=== PATIENT | male | born 1955 | race Caucasian/White ===

== ENCOUNTER → 2016-07-08 | Outpatient (CLI) | payer MEDICARE ==
[~2016-07-08] VITALS: Ht 180.3 cm; Wt 113.4 kg
[~2016-07-08] MED LIST: LIDOCAINE 2% INJ 100 MG/5 ML SDV (FOR ANES.) As Ordered ONE; LISI10TA4 PO; NS 1,000 ML IV SCH; OMEP40CA2 PO; PROPOFOL 500 MG/50 ML VIAL As Ordered ONE; SIMV10TA2 PO
--- NOTE | 2016-07-08 12:36 | ROOR ---
Patient Name: Jordan Dhaliwal Procedure Date: 07/08/2016 12:10 PM Date of : 1955 Age: 61 Room: M OP Gender: Male Note Status: Finalized Procedure: Upper GI endoscopy Indications: Dysphagia, Suspected esophageal reflux Providers: Cam GALVIN MD Referring MD: VIANCA BOOTH MD Requesting Provider: Medicines: Monitored Anesthesia Care Complications: No immediate complications. Procedure: Pre-Anesthesia Assessment: - The heart rate, respiratory rate, oxygen saturations, blood pressure, adequacy of pulmonary ventilation, and response to care were monitored throughout the procedure. The Endoscope was introduced through the mouth, and advanced to the second part of duodenum. The upper GI endoscopy was accomplished without difficulty. The patient tolerated the procedure well. Findings: No endoscopic abnormality was evident in the esophagus to explain the patient's complaint of dysphagia. It was decided, however, to proceed with dilation of the entire esophagus. The scope was withdrawn. Dilation was performed with a Eubanks dilator with no resistance at 54 Fr. The dilation site was examined and showed no change. The entire examined stomach was normal. A small hiatus hernia was present. The examined duodenum was normal. Impression: - No endoscopic esophageal abnormality to explain patient's dysphagia. Esophagus dilated. Dilated. - Normal stomach (large volume). - Very small (insignificant) hiatus hernia. - Normal examined duodenum. - No specimens collected. Recommendation: - Use Protonix (pantoprazole) 40 mg PO daily. - (the script was sent to your pharmacy on file) Cam Galvin MD Cam GALVIN MD 07/08/2016 12:36:00 PM This report has been signed electronically. Number of Addenda: 0 Note Initiated On: 07/08/2016 12:10 PM Estimated Blood Loss: Estimated blood loss: none.
[2016-07-08 12:51] VITALS: BP 141/85
--- NOTE | 2016-07-08 12:51 | ROOR ---
Patient Name: Jordan Dhaliwal Procedure Date: 07/08/2016 12:11 PM Date of : 1955 Age: 61 Room: [facility] Gender: Male Note Status: Finalized Procedure: Colonoscopy Indications: Change in bowel habits, Diarrhea Providers: Cam ATWOOD MD Referring MD: VIANCA BOOTH MD Requesting Provider: Medicines: Monitored Anesthesia Care Complications: No immediate complications. Procedure: Pre-Anesthesia Assessment: - The heart rate, respiratory rate, oxygen saturations, blood pressure, adequacy of pulmonary ventilation, and response to care were monitored throughout the procedure. The Colonoscope was introduced through the anus and advanced to the cecum, identified by appendiceal orifice and ileocecal valve. The colonoscopy was performed with difficulty due to inadequate bowel prep. Successful completion of the procedure was aided by lavage. The patient tolerated the procedure well. The quality of the bowel preparation was poor. Findings: The perianal and digital rectal examinations were normal. (Colon Prep was POOR, Inadequate Visualisation) Four flat polyps were found in the ascending colon and in the cecum. The polyps were 3 to 5 mm in size. These polyps were removed with a cold snare. Resection and retrieval were complete. Multiple medium-mouthed diverticula were found in the entire colon. Internal hemorrhoids were found during retroflexion. The hemorrhoids were medium-sized. The colon is grossly normal without large tumors or obstructing lesions. Unable to perform adequate detail examination. Small lesions may have been missed. Impression: - Preparation of the colon was poor. - The colon is grossly normal without large tumors or obstructing lesions. Unable to perform adequate detail examination. - Four 3 to 5 mm polyps in the ascending colon and in the cecum, removed with a cold snare. Resected and retrieved. - Moderate diverticulosis in the entire examined colon. - Internal hemorrhoids. Recommendation: - Repeat colonoscopy in 1 year because the bowel preparation was poor. Cam Atwood MD Cam ATWOOD MD 07/08/2016 12:50:59 PM This report has been signed electronically. Number of Addenda: 0 Note Initiated On: 07/08/2016 12:11 PM Estimated Blood Loss: Estimated blood loss: none.
== END ==
LOC: M OPP 09:07
PROVIDERS: ATTEND Internal Medicine Gastroenterology
DX: R19.4 Change in bowel habit (principal); R19.7 Diarrhea, unspecified; D12.2 Benign neoplasm of ascending colon; D12.0 Benign neoplasm of cecum; K57.30 Diverticulosis of large intestine without perforation or abscess without bleeding; K64.8 Other hemorrhoids; R13.10 Dysphagia, unspecified; K44.9 Diaphragmatic hernia without obstruction or gangrene; I10 Essential (primary) hypertension; E78.00 Pure hypercholesterolemia, unspecified; Z90.49 Acquired absence of other specified parts of digestive tract; Z79.899 Other long term (current) drug therapy; Z88.5 Allergy status to narcotic agent

== ENCOUNTER → 2017-02-09 | Outpatient (CLI) | payer MEDICARE ==
[~2017-02-09] MED LIST changes: -LIDOCAINE 2% INJ 100 MG/5 ML SDV (FOR ANES.) As Ordered ONE; -NS 1,000 ML IV SCH; -PROPOFOL 500 MG/50 ML VIAL As Ordered ONE
[2017-02-09 14:40] LABS: ANION GAP 6 MEQ/L (8-16); BLOOD UREA NITROGEN 14 MG/DL (7-18); CALCIUM LEVEL 9.2 MG/DL (8.8-10.2); CARBON DIOXIDE LEVEL 30 MEQ/L (21-32); CHLORIDE LEVEL 104 MEQ/L (98-107); CREATININE FOR GFR 0.88 MG/DL (0.70-1.30); GLOMERULAR FILTRATION RATE > 60.0 (>49); GLUCOSE, FASTING 85 MG/DL (80-110); POTASSIUM SERUM 4.4 MEQ/L (3.5-5.1); SODIUM LEVEL 140 MEQ/L (136-145)
== END ==
LOC: M SMT 11:32
PROVIDERS: ATTEND Nurse Practitioner Women's Health
DX: R31.29 Other microscopic hematuria (principal)
CPT/HCPCS: 36415; 80048; 81001; 87086; 88108; G0463

== ENCOUNTER → 2017-02-23 | Outpatient (CLI) | payer MEDICARE ==
[~2017-02-23] MED LIST changes: +ISOVUE-370 76% 100ML VIAL (Q9967) As Ordered ONE
--- NOTE | 2017-02-23 17:45 | REP ---
CT urogram with IV but without oral contrast: History: Microscopic hematuria. Comparison study 11/07/[address] [facility] contrast dose: 100 mL of Isovue [address] findings: Preliminary digital commercial art instructor radiograph is unremarkable. The lung bases are clear. The liver and the spleen are normal in size homogeneous in texture on pre and postcontrast images. No adrenal lesion is seen. There are clips in the gallbladder fossa post cholecystectomy. No pancreatic abnormality is observed. No retroperitoneal mass or adenopathy is seen. Normal caliber aorta is seen. Pre contrast study shows no evidence of intrarenal calculus. No hydronephrosis is seen. The kidneys enhance symmetrically and are morphologically intact on postcontrast images. No filling defect is seen in the collecting system on either side. Ureters describe a normal course to the bladder. No filling defect seen in the bladder. Prostate is somewhat enlarged. It contains dystrophic calcifications. Seminal vesicles are unremarkable. There is rich colonic diverticulosis without CT evidence of diverticulitis. Small and large bowel loops are otherwise unremarkable. No bladder abnormality is seen. No bony destructive lesion seen. Impression: 1. Postcholecystectomy. 2. Rich colonic diverticulosis. 3. Some dystrophic changes are seen in the in the mildly enlarged prostate. 4. Otherwise unremarkable CT abdomen pelvis with IV contrast, CT urogram. Signed by Rob Silva MD 02/24/2017 09:53 A
== END ==
LOC: M RAD 15:42
PROVIDERS: ATTEND Nurse Practitioner Women's Health
DX: K57.90 Diverticulosis of intestine, part unspecified, without perforation or abscess without bleeding (principal); N42.89 Other specified disorders of prostate
CPT/HCPCS: 74178; Q9967

== ENCOUNTER → 2017-08-14 | Day surgery (SDC) | payer MEDICARE ==
[~2017-08-14] MED LIST changes: -ISOVUE-370 76% 100ML VIAL (Q9967) As Ordered ONE; +LIDOCAINE 2% INJ 100 MG/5 ML SDV (FOR ANES.) As Ordered; -LISI10TA4 PO; +NS 1,000 ML IV; -OMEP40CA2 PO; +PROPOFOL 500 MG/50 ML VIAL As Ordered; -SIMV10TA2 PO
== END | disposition home or self-care (01) ==
LOC: M OPP 08:18
DX: Z09 Encounter for follow-up examination after completed treatment for conditions other than malignant neoplasm (principal); Z86.010 Personal history of colon polyps; D49.0 Neoplasm of unspecified behavior of digestive system; D12.2 Benign neoplasm of ascending colon; D12.0 Benign neoplasm of cecum; K57.30 Diverticulosis of large intestine without perforation or abscess without bleeding; R12 Heartburn; R19.8 Other specified symptoms and signs involving the digestive system and abdomen; K22.8 Other specified diseases of esophagus; I10 Essential (primary) hypertension; E78.5 Hyperlipidemia, unspecified; M19.90 Unspecified osteoarthritis, unspecified site; R06.02 Shortness of breath; K44.9 Diaphragmatic hernia without obstruction or gangrene; Z87.891 Personal history of nicotine dependence; Z88.8 Allergy status to other drugs, medicaments and biological substances; Z79.899 Other long term (current) drug therapy; Z80.8 Family history of malignant neoplasm of other organs or systems
CPT/HCPCS: 45385

== ENCOUNTER 2018-11-18 07:08 | Day surgery (SDC) | payer MEDICARE ==
[~2018-11-18] VITALS: Ht 180.3 cm; Wt 120.2 kg
[~2018-11-18 07:08] MED LIST changes: -LIDOCAINE 2% INJ 100 MG/5 ML SDV (FOR ANES.) As Ordered; +LISI10TA4 PO; -NS 1,000 ML IV; +OMEP40CA2 PO; -PROPOFOL 500 MG/50 ML VIAL As Ordered; +SIMV10TA2 PO
[2018-11-18] MEDS ORDERED: NS 1,000 ML IV ONE (09:15)
[2018-11-18] MEDS ORDERED: PROPOFOL 500 MG/50 ML VIAL As Ordered ONE (09:18)
[2018-11-18] MEDS ORDERED: LIDOCAINE 2% INJ 100 MG/5 ML SDV (FOR ANES.) As Ordered ONE (09:18)
--- NOTE | 2018-11-18 09:37 | ROOR ---
Patient Name: Jordan Dhaliwal Procedure Date: 11/18/2018 9:11 AM Date of : 1955 Age: 63 Room: [facility] Gender: Male Note Status: Finalized Procedure: Colonoscopy Indications: High risk colon cancer surveillance: Personal history of colonic polyps Providers: Cam ATWOOD MD Referring MD: VIANCA BOOTH MD Requesting Provider: Medicines: Monitored Anesthesia Care Complications: No immediate complications. Procedure: Pre-Anesthesia Assessment: - The heart rate, respiratory rate, oxygen saturations, blood pressure, adequacy of pulmonary ventilation, and response to care were monitored throughout the procedure. The Colonoscope was introduced through the anus and advanced to the cecum, identified by appendiceal orifice and ileocecal valve. The colonoscopy was somewhat difficult due to inadequate bowel prep. Successful completion of the procedure was aided by lavage. The patient tolerated the procedure well. The quality of the bowel preparation was fair. Findings: The perianal and digital rectal examinations were normal. (EXAM: Complete, PREP: Suboptimal) Three sessile polyps were found in the sigmoid colon. The polyps were 4 to 6 mm in size. These polyps were removed with a cold snare. Resection and retrieval were complete. Multiple small and large-mouthed diverticula were found in the left colon. Multiple medium-mouthed diverticula were found in the right colon. Internal hemorrhoids were found during retroflexion. The hemorrhoids were moderate. Impression: - (EXAM: Complete, PREP: Suboptimal) - Three 4 to 6 mm polyps in the sigmoid colon, removed with a cold snare. Resected and retrieved. - Moderate diverticulosis in the left colon. - Mild diverticulosis in the right colon. - Internal hemorrhoids. Recommendation: - Repeat colonoscopy in 2 years because the bowel preparation was suboptimal. - Repeat colonoscopy in 2 years for adenoma surveillance. - (s/p 3 poorly prepped colonoscopies. would Rec alternate/more aggressive colon preparation for next colonoscopy) Cam Atwood MD Cam ATWOOD MD 11/18/2018 9:37:21 AM Electronically signed by Cam ATWOOD MD Number of Addenda: 0 Note Initiated On: 11/18/2018 9:11 AM Estimated Blood Loss: Estimated blood loss: none.
[2018-11-18 09:55] VITALS: BP 125/88
== END 2018-11-18 10:08 | disposition home or self-care (01) ==
LOC: M OPP 07:08
PROVIDERS: ATTEND Internal Medicine Gastroenterology
DX: K64.8 Other hemorrhoids (principal); D12.5 Benign neoplasm of sigmoid colon; Z86.010 Personal history of colon polyps; Z79.899 Other long term (current) drug therapy; Z88.8 Allergy status to other drugs, medicaments and biological substances

== ENCOUNTER → 2020-08-30 | Outpatient (CLI) | payer MEDICARE ==
[~2020-08-30] MED LIST changes: +ATOR40TA75 PO; +LISI10TA22 PO; -LISI10TA4 PO; +LOSA50TA88 PO; -OMEP40CA2 PO; +OMEP40CA97 PO; +SERT50TA29 PO; -SIMV10TA2 PO; +SIMV10TA21 PO
== END ==
LOC: M LABSMTC 09:44
PROVIDERS: ATTEND Anesthesiology
DX: Z01.812 Encounter for preprocedural laboratory examination (principal); Z20.822 Contact with and (suspected) exposure to COVID-19

== ENCOUNTER 2020-09-04 11:04 | Day surgery (SDC) | payer MEDICARE ==
[~2020-09-04] VITALS: Ht 177.8 cm; Wt 115.2 kg
[~2020-09-04 11:04] MED LIST changes: +NS 1,000 ML IV ONE
[2020-09-04] MEDS ORDERED: propofoL 200 MG/20 ML VIAL As Ordered ONE ×2 (12:18→12:34)
[2020-09-04] MEDS ORDERED: LIDOCAINE 2% 100MG/5ML SDV (FOR ANES.) As Ordered ONE (12:18)
--- NOTE | 2020-09-04 12:28 | ROOR ---
Patient Name: Jordan Dhaliwal Procedure Date: 09/04/2020 12:12 PM Date of : 1955 Age: 65 Room: [facility] Gender: Male Note Status: Finalized Procedure: Upper GI endoscopy Indications: Follow-up of Moreira's esophagus Providers: Cam GALVIN MD Referring MD: VIANCA BOOTH MD Requesting Provider: Medicines: Monitored Anesthesia Care Complications: No immediate complications. Procedure: Pre-Anesthesia Assessment: - The heart rate, respiratory rate, oxygen saturations, blood pressure, adequacy of pulmonary ventilation, and response to care were monitored throughout the procedure. The Endoscope was introduced through the mouth, and advanced to the second part of duodenum. The upper GI endoscopy was accomplished without difficulty. The patient tolerated the procedure well. Findings: The Z-line was variable and was found 40 cm from the incisors. This was biopsied with a cold forceps for evaluation to rule out Moreira's Esophagus. The examined esophagus was otherwise normal. The entire examined stomach was normal. The examined duodenum was normal. Impression: - Z-line variable, 40 cm from the incisors. Biopsied. - Otherwise normal esophagus. - Normal stomach. - Normal examined duodenum. Recommendation: - Continue present medications. - Follow an antireflux regimen. - Repeat upper endoscopy in 3 years for surveillance. Procedure Code(s): --- Professional --- 54737, Esophagogastroduodenoscopy, flexible, transoral; with biopsy, single or multiple Diagnosis Code(s): --- Professional --- K22.70, Moreira's esophagus without dysplasia K22.8, Other specified diseases of esophagus CPT copyright 2019 [employer]. All rights reserved. The codes documented in this report are preliminary and upon ornithology teacher review may be revised to meet current compliance requirements. Cam Galvin MD Cam GALVIN MD 09/04/2020 12:28:03 PM Electronically signed by Cam GALVIN MD Number of Addenda: 0 Note Initiated On: 09/04/2020 12:12 PM Estimated Blood Loss: Estimated blood loss: none.
--- NOTE | 2020-09-04 12:48 | ROOR ---
Patient Name: Jordan Dhaliwal Procedure Date: 09/04/2020 12:13 PM Date of : 1955 Age: 65 Room: [facility] Gender: Male Note Status: Finalized Procedure: Colonoscopy Indications: High risk colon cancer surveillance: Personal history of colonic polyps, Last colonoscopy: November 2018, Incidental - Positive Cologuard test Providers: Cam ATWOOD MD Referring MD: VIANCA BOOTH MD Requesting Provider: Medicines: Monitored Anesthesia Care Complications: No immediate complications. Procedure: Pre-Anesthesia Assessment: - The heart rate, respiratory rate, oxygen saturations, blood pressure, adequacy of pulmonary ventilation, and response to care were monitored throughout the procedure. The Colonoscope was introduced through the anus and advanced to the terminal ileum, with identification of the appendiceal orifice and IC valve. The colonoscopy was performed without difficulty. The patient tolerated the procedure well. The quality of the bowel preparation was fair. Findings: EXAM: Complete, PREP: Fair The perianal and digital rectal examinations were normal. A diminutive polyp was found in the cecum. The polyp was sessile. The polyp was removed with a cold snare. Resection and retrieval were complete. Multiple small and large-mouthed diverticula were found in the left colon and right colon. Internal hemorrhoids were found during retroflexion. The hemorrhoids were moderate. The exam was otherwise without abnormality on direct and retroflexion views. Impression: - (EXAM: Complete, PREP: Fair) - One diminutive polyp in the cecum, removed with a cold snare. Resected and retrieved. - Moderate diverticulosis in the left colon and in the right colon. - Internal hemorrhoids. - The examination was otherwise normal on direct and retroflexion views. Recommendation: - Repeat colonoscopy in 3 years for adenoma surveillance. - Repeat colonoscopy in 3 years because the bowel preparation was suboptimal. Procedure Code(s): --- Professional --- 00110, Colonoscopy, flexible; with removal of tumor(s), polyp(s), or other lesion(s) by snare technique Diagnosis Code(s): --- Professional --- K57.30, Diverticulosis of large intestine without perforation or abscess without bleeding K63.5, Polyp of colon K64.8, Other hemorrhoids Z86.010, Personal history of colonic polyps CPT copyright 2019 [employer]. All rights reserved. The codes documented in this report are preliminary and upon can intake worker review may be revised to meet current compliance requirements. Cam Atwood MD Cam ATWOOD MD 09/04/2020 12:47:48 PM Electronically signed by Cam ATWOOD MD Number of Addenda: 0 Note Initiated On: 09/04/2020 12:13 PM Estimated Blood Loss: Estimated blood loss: none.
[2020-09-04 12:50] VITALS: BP 125/83
== END 2020-09-04 13:21 | disposition home or self-care (01) ==
LOC: M OPP 11:04
PROVIDERS: ATTEND Internal Medicine Gastroenterology
DX: D12.0 Benign neoplasm of cecum (principal); K57.30 Diverticulosis of large intestine without perforation or abscess without bleeding; K64.8 Other hemorrhoids; Z86.010 Personal history of colon polyps; R19.5 Other fecal abnormalities; K22.8 Other specified diseases of esophagus; K22.70 Barrett's esophagus without dysplasia; I10 Essential (primary) hypertension; Z79.899 Other long term (current) drug therapy; Z88.5 Allergy status to narcotic agent; Z87.891 Personal history of nicotine dependence

== ENCOUNTER → 2021-11-11 | Outpatient (CLI) | payer MEDICARE ==
[~2021-11-11] MED LIST changes: +LOSA50TA28 PO; -LOSA50TA88 PO; -NS 1,000 ML IV ONE; +OMEP40CA4 PO; -OMEP40CA97 PO
== END ==
LOC: M RAD 06:22
PROVIDERS: ATTEND Registered Nurse
DX: Z12.2 Encounter for screening for malignant neoplasm of respiratory organs (principal); F17.211 Nicotine dependence, cigarettes, in remission